=== PATIENT | male | born 1960 | race Caucasian/White ===

== ENCOUNTER 2022-12-28 15:12 | Emergency (ER) | payer OTHER ==
[2022-12-28 17:15] VITALS: BP 118/72
[2022-12-28 18:31] VITALS: BP 113/73
[2022-12-28 18:46] VITALS: BP 123/77
[2022-12-28 19:00] VITALS: BP 122/83
[2022-12-28] MEDS ORDERED: NAPROXEN500 MG PO (19:10)
[2022-12-28] MEDS ORDERED: METHOCARBAMOL500 MG PO (19:10)
[2022-12-28 19:15] VITALS: BP 124/83
[2022-12-28 19:33] VITALS: BP 124/83
== END 2022-12-28 19:34 | disposition home or self-care (01) | DRG 538 ==
LOC: ED 15:12
DX: S76.312A Strain of muscle, fascia and tendon of the posterior muscle group at thigh level, left thigh, initial encounter (principal); Y93.69 Activity, other involving other sports and athletics played as a team or group